=== PATIENT | female | born 1985 | race Caucasian/White ===

== ENCOUNTER 2020-01-11 16:19 | Emergency (ER) | payer OTHER ==
[2020-01-11 16:23] VITALS: BP 125/81; PULSE 68; TEMP 98.4; BMI 24.5
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
[2020-01-11] MEDS ORDERED: FLUCONAZOLE 150 MG TABLET PO ONE ×2 (18:19→19:00)
[2020-01-11 18:41] LABS: EPI CELLS >36 /HPF (0-5/HPF); HCG,QUALITATIVE URINE Negative; HYALINE CASTS 7 /lpf (0-8); PH,URINE 6.5 (5.0-8.0); URINE APPEARANCE CLEAR; URINE BACTERIA 270 /hpf (NEGATIVE); URINE BILIRUBIN NEGATIVE (NEGATIVE); URINE COLOR YELLOW; URINE GLUCOSE (UA) NEGATIVE (NEGATIVE); URINE KETONE NEGATIVE (NEGATIVE); URINE LEUK ESTERASE 1+ (NEGATIVE); URINE NITRITE NEGATIVE (NEGATIVE); URINE PROTEIN 1+ (NEGATIVE); URINE UROBILINOGEN 0.2 mg/dL (0.2-1.0); URINE WBC 91 /hpf (0-5)
[2020-01-11] MEDS ORDERED: AZITHROMYCIN 250 MG TABLET PO ONE (18:55)
[2020-01-11] MEDS ORDERED: AZITHROMYCIN 250 MG TABLET ONE (19:00)
[2020-01-11] MEDS ORDERED: LIDOCAINE HCL 2% (20ML MULTI-DOSE VIAL) ONE (19:01)
[2020-01-11 20:01] LABS: URINE RBC 10.1 /hpf (0-4); YEAST FEW (NEGATIVE)
== END 2020-01-11 19:08 | disposition home or self-care (01) ==
LOC: JERFT 16:19
DX: B37.3 Candidiasis of vulva and vagina (principal); N39.0 Urinary tract infection, site not specified
CPT/HCPCS: 36415; 81003; 84703; 87070; 87077; 87086; 87205; 87491; 87591; 87661; 96372; 99283-25

== ENCOUNTER 2020-11-19 04:34 | Emergency (ER) | payer OTHER ==
[2020-11-19 04:52] VITALS: BMI 24.5
[2020-11-19 05:25] LABS: BASO % 0.8 % (0-2.0); EOS % 1.5 % (0-4.5); HEMATOCRIT 41.4 % (32.4-45.2); HEMOGLOBIN 14.1 GM/dL (10.7-15.3); LYMPH % 35.1 % (8-40); MCH 31.1 pg (25.7-33.7); MEAN CELL VOLUME 91.3 fl (80-96); MEAN PLT VOLUME 10.1 fl (7.5-11.1); MONO % 9.5 % (3.8-10.2); NEUT % 53.1 % (42.8-82.8); PLATELET COUNT 190 K/MM3 (134-434); RBC 4.54 M/mm3 (3.60-5.2); RDW 13.2 % (11.6-15.6); WHITE BLOOD COUNT 4.5 K/mm3 (4.0-10.0)
[2020-11-19 05:35] LABS: INR 0.91 (0.83-1.09); PROTHROMBIN TIME (PATIENT) 11.1 SEC (9.7-13.0)
[2020-11-19 05:37] LABS: ACTIVATED PTT 29.6 SECONDS (25.2-36.5)
[2020-11-19 05:40] LABS: CHLORIDE 108 mmol/L (98-107); POTASSIUM 3.6 mmol/L (3.5-5.1); SODIUM 141 mmol/L (136-145)
[2020-11-19 05:42] LABS: ALBUMIN 3.1 g/dl (3.4-5.0); ANION GAP 5 MMOL/L (8-16); BLOOD UREA NITROGEN 10.7 mg/dL (7-18); CALCIUM 8.5 mg/dL (8.5-10.1); CO2 28 mmol/L (21-32); GLUCOSE,RANDOM 111 mg/dL (74-106)
[2020-11-19 05:45] LABS: CREATININE 0.7 mg/dL (0.55-1.3); SGOT/AST 25 U/L (15-37); SGPT/ALT 24 U/L (13-61)
[2020-11-19 05:47] LABS: BILIRUBIN,TOTAL 0.4 mg/dL (0.2-1); TOT PROT 5.9 g/dl (6.4-8.2)
[2020-11-19 05:48] LABS: ALK PHOS 52 U/L (45-117)
[2020-11-19] MEDS ORDERED: ACETAMINOPHEN 1000 MG/100 ML VIAL (NON FORMULARY) IVPB ONE (06:07)
[2020-11-19] MEDS ORDERED: SODIUM CHLORIDE 1,000 ML IV SCH (06:15)
[2020-11-19] MEDS ORDERED: ACETAMINOPHEN INJECTION 100 ML IVPB ONE (06:33)
[2020-11-19 09:10] LABS: EPI CELLS 17 /uL (0-25.1); HYALINE CASTS 6 /uL (0-3.1); PH,URINE 5.5 (5.0-8.0); URINE APPEARANCE CLEAR; URINE BACTERIA 76 /uL (0-1359); URINE BILIRUBIN NEGATIVE (NEGATIVE); URINE COLOR YELLOW; URINE GLUCOSE (UA) NEGATIVE (NEGATIVE); URINE KETONE 1+ (NEGATIVE); URINE LEUK ESTERASE NEGATIVE (NEGATIVE); URINE NITRITE NEGATIVE (NEGATIVE); URINE PROTEIN NEGATIVE (NEGATIVE); URINE RBC 91 /uL (0-23.9); URINE UROBILINOGEN 0.2 mg/dL (0.2-1.0); URINE WBC 51 /uL (0-25.8)
[2020-11-19] MEDS ORDERED: CEPHALEXIN MONOHYDRATE 500 MG CAPSULE (UD) PO ONE (09:13)
[2020-11-19] MEDS ORDERED: CEPHALEXIN MONOHYDRATE 500 MG CAPSULE (UD) ONE (09:29)
[2020-11-19 09:43] VITALS: BP 122/76; PULSE 72; TEMP 98.6
== END 2020-11-19 09:40 | disposition home or self-care (01) ==
LOC: JER 04:34
PROC: 3E033NZ Introduction of Analgesics, Hypnotics, Sedatives into Peripheral Vein, Percutaneous Approach (ICD-10-PCS; principal; 2020-11-19)
DX: N30.00 Acute cystitis without hematuria (principal)
CPT/HCPCS: 36415; 76830-TC; 80053; 81003; 84702; 85025; 85610; 85730; 87086; 87491; 87591; 93005; 93010; 96374; 99285-25; J0131